=== PATIENT | female | born 1945 ===

== ENCOUNTER 2021-09-26 07:41 | Outpatient (RCR) | payer MEDICARE, SELFPAY ==
[2021-09-26 07:52] VITALS: BP 160/75; PULSE 74
--- NOTE | 2021-09-26 09:26 | MHC.PT.EP ---
[facility] [place] Office [place] Office [place] Office [address] Chalino Horta [address] [phone] F: [phone] F: [phone] F: [phone] F: [phone] Physical Therapy Plan of Care Date of Evaluation: Date of Surgery: Diagnosis: vertigo Assessment: 76 y/o F referred to PT with vertigo. Reports onset of 'unsteadiness' in August following a bad cold. Describes dizziness as 'losing my balance and it takes the wind out of my sails; like a low blood sugar feeling. Denies room-spinning sensation, more like a tipping feeling. She has good days and bad days. Sx last all day. Examination shows HBP 160/75, normal oculomotor exam, (-) head thrust, slight impaired static balance with eyes closed situation, 21/24 DGI with mild impaired during H/V head turns, and (-) for BPPV. Of note, pt is going to [place] for 3 months next week, therefore educated pt on possible vestibular hypofunction and given static balance with head turn exercises in a corner with chair in front of her for safety as well as seated VOR. If no change in sx in 2-3 weeks, she is to f/u with MD regarding dizziness. Also recommend f/u with MD regarding HBP if it continues (she will monitor at home). Pt will not attend further PT as she will be on vacation for 2-3 months. Frequency and Duration: The patient will be seen Short Term Goals: Half-Way Goals: no goals, pt going on vacation Treatment Plan: Modalities to reduce pain, spasms and effusion. Manual therapy to restore motion and function. Therapeutic exercise to improve strength and flexibility. Neuromuscular re-education for posture and balance. Therapeutic activities to return to functional activities of daily living. Electronically signed by: Chelsey Luna PT DPT Please sign and return to therapist. Thank you for your referral.
--- NOTE | 2021-09-26 09:30 | MHC.PT.DC ---
[facility] [place] Office [place] Office [place] Office [address] Chalino Horta [address] [phone] F: [phone] F: [phone] F: [phone] F: [phone] Physical Therapy Discharge Report Diagnosis: vertigo Date of Surgery: Date of Evaluation: 09/26/21 Date of Discharge: 09/26/21 Treatments to Date: 1 Cancellations to Date: No Shows to Date: Discharge Status: Discharge Summary: 76 y/o F referred to PT with vertigo. Reports onset of 'unsteadiness' in August following a bad cold. Describes dizziness as 'losing my balance and it takes the wind out of my sails; like a low blood sugar feeling. Denies room-spinning sensation, more like a tipping feeling. She has good days and bad days. Sx last all day. Examination shows HBP 160/75, normal oculomotor exam, (-) head thrust, slight impaired static balance with eyes closed situation, 21/24 DGI with mild impaired during H/V head turns, and (-) for BPPV. Of note, pt is going to [place] for 3 months next week, therefore educated pt on possible vestibular hypofunction and given static balance with head turn exercises in a corner with chair in front of her for safety as well as seated VOR. If no change in sx in 2-3 weeks, she is to f/u with MD regarding dizziness. Also recommend f/u with MD regarding HBP if it continues (she will monitor at home). Pt will not attend further PT as she will be on vacation for 2-3 months. Electronically signed by: Chelsey Luna PT Please sign and return to therapist. Thank you for your referral.
== END 2021-09-26 09:31 | disposition home or self-care (01) ==
LOC: HO.PT 07:41
PROVIDERS: PCP Family Medicine; Visit Provider Otolaryngology
DX: R42 Dizziness and giddiness (principal)
CPT/HCPCS: 95992; 97112; 97162